=== PATIENT | male | born 1990 | race Caucasian/White ===

== ENCOUNTER 2023-05-13 14:21 | Emergency (ER) | payer MEDICAID ==
[~2023-05-13] VITALS: Ht 172.7 cm; Wt 78.9 kg
[2023-05-13 14:30] VITALS: BP 117/72; TEMP 98.5
[2023-05-13] MEDS ORDERED: IBUP-1953 PO (16:06)
[2023-05-13 16:15] VITALS: O2SAT 99
== END 2023-05-13 16:15 | disposition home or self-care (01) ==
LOC: ER 14:25
DX: U07.1 COVID-19 (principal); R07.81 Pleurodynia; F17.200 Nicotine dependence, unspecified, uncomplicated; Z60.2 Problems related to living alone